=== PATIENT | male | born 1950 | race African-American/Black ===

== ENCOUNTER 2022-09-11 09:46 | Outpatient (CLI) | payer MEDICARE | END 2022-09-11 09:47 | disposition home or self-care (01) | LOC: CSHRAD 09:46 | PROVIDERS: ATTEND Phlebology | DX: I69.391 Dysphagia following cerebral infarction (principal); R13.10 Dysphagia, unspecified; I67.89 Other cerebrovascular disease | CPT/HCPCS: 74230 ==